=== PATIENT | female | born 1970 | race Hispanic/Latino ===

== ENCOUNTER 2022-01-27 09:13 | Emergency (ER) | payer OTHER ==
[~2022-01-27] VITALS: Ht 154.9 cm; Wt 58.1 kg
[2022-01-27] MEDS ORDERED: PREDNISONE20 MG PO (10:22)
== END 2022-01-27 10:30 | disposition home or self-care (01) ==
LOC: ER 09:24
DX: J45.998 Other asthma (principal); B34.9 Viral infection, unspecified
CPT/HCPCS: 87400; 99283